=== PATIENT | female | born 1945 | race Caucasian/White ===

== ENCOUNTER 2022-11-15 07:39 | Inpatient (IN) | payer MEDICARE, MEDICAID, SELFPAY ==
--- NOTE | ~2022-11-15 | CT_ITS ---
EXAMINATION: CT abdomen pelvis w con INDICATION: Rectal bleeding TECHNIQUE: Computed tomographic images of the abdomen and pelvis were obtained after the administrati on of 100 cc of Omnipaque 350 intravenous contrast. The dose-length product (DLP) was 1414.52 mGy-cm. Automated exposure control and iterative reconstruction technique were employed. COMPARISON: None available FINDINGS: Minimal dependent atelectasis is present in the lung bases. The heart size is normal. There is a small sliding hiatal hernia. The gallbladder is surgically absent. There is mild enlargement of the common bile duct and central intrahepatic ducts which is likely due to post cholecystectomy stat e. The liver, spleen, pancreas, and adrenal glands are normal. There are areas of cortical scarring i n the right kidney. There is a 1.7 cm cyst of the left kidney. Peripelvic cysts are also noted in the left kidney. No pathologically enlarged abdominal or pelvic lymph nodes are identified. No free intr aperitoneal gas or evidence of bowel obstruction. There is circumferential wall thickening of the col on from the splenic flexure through the sigmoid colon. There is pericolic fat stranding adjacent to t he affected segment of colon. There is moderate lower thoracic spondylosis. IMPRESSION: 1. Colitis from the splenic flexure through the sigmoid colon. Reviewed, dictated and finalized at location [facility]
[2022-11-15 07:49] VITALS: BP 158/77; PULSE 81; RESP 18; TEMP 37.2; O2SAT 95
[2022-11-15 08:04] VITALS: BP 146/79; PULSE 64
[2022-11-15 08:06] VITALS: BP 144/89; PULSE 89
[2022-11-15 08:09] VITALS: BP 135/96; PULSE 89
--- NOTE | 2022-11-15 08:12 | ED.GIBLEED ---
HPI - GI Bleed General Chief complaint: GI Bleed Stated complaint: abdominal pain, rectal bleeding Time Seen by Provider: 11/15/22 07:52 Source: patient, family and RN notes reviewed Mode of arrival: ambulatory Limitations: no limitations History of Present Illness HPI Narrative: This is a 77 year old female who presents for evaluation of rectal bleeding. Patient states last night she developed diffuse abdominal cramping that has been constant. She also started having multiple stools that were occuring every 2 hours. She reports she is now pass bright red blood per rectum. She is passing blood clots. She reports weakness. She denies fever, chills. She had 1 episode of emesis early as well . She takes aspirin 81 mg for history of TIA per her daughter.. PAtient reports colonoscopy 3 years ago that shows polyp but denies hemorrhoids. Related Data Home Medications Medication Instructions Recorded Confirmed amlodipine 5 mg tablet 5 mg DAILY 11/15/22 11/15/22 aspirin 81 mg capsule 81 mg PO DAILY 11/15/22 11/15/22 cholecalciferol (vitamin D3) 25 25 mcg PO DAILY 11/15/22 11/15/22 mcg (1,000 unit) capsule (Vitamin D3) hydrochlorothiazide 25 mg tablet 25 mg DAILY 11/15/22 11/15/22 levothyroxine 125 mcg tablet 125 mcg DAILY 11/15/22 11/15/22 losartan 100 mg tablet 100 mg DAILY 11/15/22 11/15/22 simvastatin 20 mg tablet 20 mg DAILY 11/15/22 11/15/22 Allergies Allergy/AdvReac Type Severity Reaction Status Date / Time guaifenesin [From Mucinex] Allergy Itching Verified 11/15/22 08:15 ibuprofen Allergy Rash Verified 11/15/22 08:15 latex Allergy Swelling Verified 11/15/22 08:15 of Lip/Tongue/Throat lisinopril Allergy Swelling Verified 11/15/22 08:15 of Lip/Tongue/Throat naproxen Allergy Palpitation Verified 11/15/22 08:15 s albuterol AdvReac Palpitation Verified 11/15/22 08:15 s Review of Systems Constitutional: Constitutional: Reports fatigue and Reports weakness Cardiovascular: Cardiovascular: Denies syncope, Denies rapid heart rate, Denies irregular heart rhythm, Denies leg edema and Denies dyspnea Respiratory: Respiratory: Denies chest congestion, Denies hemoptysis, Denies excessive phlegm production and Denies dyspnea Gastrointestinal: Gastrointestinal: Reports abdominal pain, Denies hematochezia, Reports diarrhea, Reports nausea and Reports vomiting Genitourinary: Genitourinary: Denies hematuria and Denies dysuria Musculoskeletal: Musculoskeletal: Denies joint swelling, Denies loss of height and Denies muscle weakness Neurologic: Denies syncope, Denies focal weakness and Denies weakness [facility] Past Medical History Medical History (Updated 11/15/22 @ 15:00 by Deya Salinas MD) Colon polyp Hypertension TIA (transient ischemic attack) Family History Family History (Updated 11/15/22 @ 13:18 by Farzaneh Herron RN) Mother Cerebrovascular accident Social History Social History (Updated 11/15/22 @ 08:13 by Deya Salinas MD) Smoking status: Never smoker Alcohol intake: never Substance use: never Lack of Transportation: No Lack of Food: Never True Current Housing: I Have Housing Concerned About Future Housing: No Difficulty Paying Gas/Electric Bills: No Difficulty Paying for Meds: No Currently Unemployed: No Education: Grade School Difficulty w/ Childcare or Family Care: No Spiritual care concerns: No Exam Const: General: no acute distress and alert Orientation/consciousness: patient oriented x3 HENMT: Head: normal to inspection Eyes: EOM: EOMs intact bilaterally Chest: Chest palpation & inspection: normal inspection of the chest Resp: Effort & Inspection: normal respiratory effort Auscultation: clear to auscultation bilaterally Cardio: Rate: regular rate Rhythm: regular rhythm Heart sounds: no murmurs GI: GI Palp: Yes Soft to palpation, Yes Tenderness to palpation present (GI) (LLQ, LUQ), No Guarding due to p
[2022-11-15 08:27] LABS: Basophils Percent Auto 0.1 % (0.2-1.2); Hematocrit 45.4 % (37.0-47.0); Hemoglobin 14.9 g/dL (12.0-15.0); Immature Granulocyte Absolute 0.05 K/mm3 (0.00-0.031); Immature Granulocyte Percent A 0.4 % (0-0.5); Lymphocytes Absolute Auto 0.84 K/mm3 (0.9-3.2); Lymphocytes Percent Auto 5.9 % (18.3-44.2); Mean Corpuscular HGB Conc 32.8 g/dl (32-36); Mean Corpuscular Hemoglobin 27.4 pg (26-34); Mean Corpuscular Volume 83.6 fl (80-100); Mean Platelet Volume 9.4 fl (7.4-10.4); Monocytes Absolute Auto 0.4 K/mm3 (0.1-0.6); Monocytes Percent Auto 3.1 % (2.6-8.5); Neutrophils Absolute Auto 12.8 K/mm3 (1.3-6.7); Neutrophils Percent Auto 90.5 % (45.5-73.1); Platelet Count Result 286 k/mm3 (150-375); Red Blood Count 5.43 M/mm3 (4.2-5.4); Red Cell Distribution Width 13.9 % (11.5-14.5); White Blood Count 14.1 K/mm3 (4.5-10.0)
[2022-11-15 08:38] LABS: Prothrombin Time 13.1 Seconds (11.1-14.7)
[2022-11-15 08:39] LABS: Alanine Aminotransferase 21 U/L (6-35); Albumin Level 4.8 g/dL (3.5-5.1); Alkaline Phosphatase 67 U/L (38-126); Anion Gap 8 mmol/L (8-16); Aspartate Amino Transferase 28 U/L (14-36); Bilirubin,Total 0.6 mg/dL (0.2-1.3); Blood Urea Nitrogen 20 mg/dL (7-17); Calcium 9.8 mg/dL (8.4-10.2); Carbon Dioxide 29 mmol/L (22-30); Chloride 100 mmol/L (98-107); Estimated CRCL calculation 49 ml/min; Estimated Glomerular Filt Rate 54; Glucose 169 mg/dL (65-110); Partial Thromboplastin Time 34.6 SECONDS (22.3-36.8); Potassium 3.1 mmol/L (3.4-5.0); Sodium 137 mmol/L (137-145)
[2022-11-15 11:23] LABS: Hematocrit 44.2 % (37.0-47.0); Hemoglobin 14.6 g/dL (12.0-15.0)
[2022-11-15] MEDS: POTASSIUM CHLORIDE 20 MEQ TABLET 40 MEQ PO (11:38)
[2022-11-15 11:49] VITALS: BP 169/79; PULSE 73; RESP 16; TEMP 37; O2SAT 95
--- NOTE | 2022-11-15 11:54 | PC.NURSE ---
Pt ambulated to bathroom to attempt to provide stool sample.
[2022-11-15 11:57] LABS: Influenza A QL RT-PCR Negative (Negative); Influenza B QL RT-PCR Negative (Negative); SARS-CoV-2 RNA PCR Negative
[2022-11-15] MEDS: ONDANSETRON INJ 4 MG/2 ML VIAL IV PUSH (12:01)
[2022-11-15] MEDS: SODIUM CHLORIDE 0.9% IV 1,000 ML 125 ML IV CONT ×2 (12:07→21:41)
[2022-11-15 12:50] VITALS: BMI 45.2
[2022-11-15 13:03] VITALS: BP 149/90; PULSE 78; RESP 18; TEMP 37.2; O2SAT 98; BMI 46.0
--- NOTE | 2022-11-15 13:15 | ADMGEN ---
This patient, Katherine Calle, was admitted to [facility] S[facility] Room 325-02. Patient/family oriented to hospital policies and general routines including ID bracelet, bed and alarms, visiting hours, pain management, procedures, bathroom and other care routines, personal items, smoking policy, room service/diet, and visiting hours. Information on how to activate the Rapid Response Team has been discussed. Patient/Family are encouraged to report perceived risks to care and to ask questions if they do not understand what they are told or what they should do.
--- NOTE | 2022-11-15 15:10 | WPDGICN ---
Assessment and Plan Assessment and plan (1) Colitis with rectal bleeding: Code(s): K52.9 - Noninfective gastroenteritis and colitis, unspecified; K62.5 - Hemorrhage of anus and rectum Status: Acute Assessment and Plan: CT scan suggest patient has left-sided colitis. Along with rectal bleeding most consistent with infectious colitis. Stool cultures are pending. Will place patient on broad-spectrum antibiotic coverage. Colonoscopy will be attempted tomorrow with preparation this evening to further define this condition and safety for advancing diet. In the interim patient will be kept on liquids with broad-spectrum antibiotics. GI Consult Note Consult date/time: 11/15/22 15:10 Reason for consult: Bloody diarrhea HPI: Katherine Calle is a 77 year old female I am asked to see because of possible infectious colitis. Patient reports recently having difficulty with constipation. Over the last 1 week she describes abdominal bloating. Over last 3 days she has had abdominal cramping. Last evening began to have some bright red blood per rectum. For this reason she presented to the emergency room. In the emergency room assess CT scan suggested colitis in the left colon. Bowel thickening was noted in this area. Patient denies a fever. She denies any recent travel. She has no one else in the family is ill. Patient was admitted the hospital for further evaluation IV antibiotics. Review of Systems Review of Systems: Review of systems noncontributory. [facility] Past Medical History Medical History (Updated 11/15/22 @ 15:00 by Deya Salinas MD) Colon polyp Hypertension TIA (transient ischemic attack) Family History Family History (Updated 11/15/22 @ 13:18 by Farzaneh Herron RN) Mother Cerebrovascular accident Social History Social History (Updated 11/15/22 @ 08:13 by Deya Salinas MD) Smoking status: Never smoker Alcohol intake: never Substance use: never Lack of Transportation: No Lack of Food: Never True Current Housing: I Have Housing Concerned About Future Housing: No Difficulty Paying Gas/Electric Bills: No Difficulty Paying for Meds: No Currently Unemployed: No Education: Grade School Difficulty w/ Childcare or Family Care: No Spiritual care concerns: No Meds Home Medications and Allergies Home Medications Medication Instructions Recorded Confirmed Type amlodipine 5 mg tablet 5 mg DAILY 11/15/22 11/15/22 History aspirin 81 mg capsule 81 mg PO DAILY 11/15/22 11/15/22 History cholecalciferol (vitamin D3) 25 25 mcg PO DAILY 11/15/22 11/15/22 History mcg (1,000 unit) capsule (Vitamin D3) hydrochlorothiazide 25 mg tablet 25 mg DAILY 11/15/22 11/15/22 History levothyroxine 125 mcg tablet 125 mcg DAILY 11/15/22 11/15/22 History losartan 100 mg tablet 100 mg DAILY 11/15/22 11/15/22 History simvastatin 20 mg tablet 20 mg DAILY 11/15/22 11/15/22 History Allergies Allergy/AdvReac Type Severity Reaction Status Date / Time guaifenesin [From Mucinex] Allergy Itching Verified 11/15/22 08:15 ibuprofen Allergy Rash Verified 11/15/22 08:15 latex Allergy Swelling Verified 11/15/22 08:15 of Lip/Tongue/Throat lisinopril Allergy Swelling Verified 11/15/22 08:15 of Lip/Tongue/Throat naproxen Allergy Palpitation Verified 11/15/22 08:15 s albuterol AdvReac Palpitation Verified 11/15/22 08:15 s Vital Signs Vital Signs - 24 hr 11/15/22 07:49 11/15/22 08:04 11/15/22 08:06 Temperature 98.9 F Pulse Rate 81 64 89 Respiratory Rate 18 Blood Pressure 158/77 H 146/79 H 144/89 H Pulse Oximetry 95 Oxygen Delivery Room Air 11/15/22 08:09 11/15/22 11:49 11/15/22 13:03 Temperature 98.6 F 99.0 F Pulse Rate 89 73 78 Respiratory Rate 16 18 Blood Pressure 135/96 H 169/79 H 149/90 H Pulse Oximetry 95 98 Oxygen Delivery 11/15/22 12:50 Temperature Pulse Rate Respiratory Rate Blood Pressure
[2022-11-15] MEDS: PEG (High)/E-LYTE SOLN 4,000 ML BTL 4000 ML PO (17:18)
--- NOTE | 2022-11-15 18:02 | PM.IMHP ---
H&P: HPI History of Present Illness Date/Time: 11/15/22 18:02 Chief Complaint: GI bleed Narrative: This is a 77-year-old female patient who has had a history of colon polyps in the past. The patient came to the emergency room to be evaluated for rectal bleeding. She stated that last night she developed diffuse abdominal cramping that has been constant. She has had multiple stools wears been bright red blood. It occurred over 2 hours prior to coming to the emergency room. The patient is passing bright red clots as well. She feels very weak. She denies any fever chills. She had an episode of emesis as well the patient does take an 81 mg aspirin for her TIAs. Her white count 14.1. Potassium is 3.1. Influenza A/B and COVID are all negative. Abdominal pelvis CT was read as colitis from the splenic flexure through the sigmoid colon. The patient was started on Zosyn and given p.o. potassium. GI was consulted and has already seen the patient. The plan is for her to have a colonoscopy tomorrow. The patient is being admitted to observation status on the date of service of 11/15/2022. Review of Systems Review of Systems: See HPI All systems reviewed & are unremarkable except as noted in HPI and below Constitutional: Constitutional: Reports as per HPI and Reports no additional constitutional complaints Eyes: Eyes: Reports as per HPI and Reports no additional eye complaints ENT: Reports system reviewed and no additional complaints, except as documented and Reports Normal hearing present Cardiovascular: Cardiovascular: Reports no additional cardiovascular complaints Respiratory: Respiratory: Reports no additional respiratory complaints and Reports no additional respiratory complaints Gastrointestinal: Gastrointestinal: Reports as per HPI and Reports no additional gastrointestinal complaints Musculoskeletal: Musculoskeletal: Reports no additional musculoskeletal complaints Integumentary/Breasts: Skin/Breast: Reports system reviewed and no additional complaints, except as docu and Reports as per HPI Neurologic: Reports system reviewed and no additional complaints, except as documented, Reports as per HPI and Reports Normal hearing present Psychiatric: Psychiatric: Reports no additional psychiatric complaints and Reports as per HPI Endocrine: Endocrine: Reports no additional endocrine complaints Hematologic/Lymphatic: Hematologic/Lymphatic: Reports no additional hematologic/lymphatic complaints Allergic/Immunologic: Allergic/Immunologic: Reports no additional allergic/immunologic complaints [facility] Past Medical History Medical History (Updated 11/15/22 @ 18:17 by Alexa Heller NP) Colon polyp Hypertension Hypothyroidism TIA (transient ischemic attack) Surgical History Surgical History (Updated 11/15/22 @ 18:07 by Alexa Heller NP) H/O colonoscopy with polypectomy H/O: hysterectomy History of appendectomy History of bladder surgery Hx of cholecystectomy Total knee replacement status Bilat Family History Family History (Updated 11/15/22 @ 18:08 by Alexa Heller NP) Mother Cerebrovascular accident Sibling Ovarian cancer Sister Social History Social History (Updated 11/15/22 @ 18:09 by Alexa Heller NP) Social History: The patient is and has 5 kids. She is a lifelong nonsmoker. She is retired. Her is her durable power energy attorney for healthcare. Code status full code Smoking status: Never smoker Alcohol intake: never Substance use: never Lack of Transportation: No Lack of Food: Never True Current Housing: I Have Housing Concerned About Future Housing: No Difficulty Paying Gas/Electric Bills: No Difficulty Paying for Meds: No Currently Unemployed: No Education: Grade School Difficulty w/ Childcare or Family Care: No Spiritual care concerns: No Meds Home Medications and Allergies Home Medications Medication Instructions Re
[2022-11-15 18:16] LABS: Hematocrit 44.8 % (37.0-47.0); Hemoglobin 14.6 g/dL (12.0-15.0)
[2022-11-15 23:14] LABS: Hematocrit 40.9 % (37.0-47.0); Hemoglobin 13.3 g/dL (12.0-15.0)
[2022-11-15 23:33] LABS: Anion Gap 5 mmol/L (8-16); Blood Urea Nitrogen 15 mg/dL (7-17); Calcium 8.8 mg/dL (8.4-10.2); Carbon Dioxide 31 mmol/L (22-30); Chloride 100 mmol/L (98-107); Estimated CRCL calculation 48 ml/min; Estimated Glomerular Filt Rate 54; Glucose 135 mg/dL (65-110); Magnesium 1.7 mg/dL (1.6-2.3); Potassium 2.7 mmol/L (3.4-5.0); Sodium 136 mmol/L (137-145)
[2022-11-16] VITALS (7 sets, daily range): BP systolic 119–151; BP diastolic 51–88; PULSE 62–80; RESP 16–24; TEMP 36.3–36.9; O2SAT 93–98
[2022-11-16] MEDS: POTASSIUM CHLORIDE 20 MEQ TABLET 40 MEQ PO (00:31)
[2022-11-16 06:52] LABS: Basophils Percent Auto 0.2 % (0.2-1.2); Eosinophils Absolute Auto 0.1 K/mm3 (0-0.3); Eosinophils Percent Auto 0.7 % (0-4.4); Hematocrit 40.6 % (37.0-47.0); Hemoglobin 13.1 g/dL (12.0-15.0); Immature Granulocyte Absolute 0.09 K/mm3 (0.00-0.031); Immature Granulocyte Percent A 0.6 % (0-0.5); Lymphocytes Absolute Auto 1.71 K/mm3 (0.9-3.2); Lymphocytes Percent Auto 11.1 % (18.3-44.2); Mean Corpuscular HGB Conc 32.3 g/dl (32-36); Mean Corpuscular Hemoglobin 26.8 pg (26-34); Mean Platelet Volume 9.3 fl (7.4-10.4); Monocytes Absolute Auto 0.9 K/mm3 (0.1-0.6); Neutrophils Absolute Auto 12.6 K/mm3 (1.3-6.7); Neutrophils Percent Auto 81.4 % (45.5-73.1); Platelet Count Result 249 k/mm3 (150-375); Red Blood Count 4.89 M/mm3 (4.2-5.4); White Blood Count 15.5 K/mm3 (4.5-10.0)
[2022-11-16 07:25] LABS: Alanine Aminotransferase 18 U/L (6-35); Albumin Level 4.1 g/dL (3.5-5.1); Alkaline Phosphatase 56 U/L (38-126); Anion Gap 7 mmol/L (8-16); Aspartate Amino Transferase 26 U/L (14-36); Bilirubin,Total 0.7 mg/dL (0.2-1.3); Blood Urea Nitrogen 13 mg/dL (7-17); Calcium 8.8 mg/dL (8.4-10.2); Carbon Dioxide 32 mmol/L (22-30); Chloride 100 mmol/L (98-107); Estimated CRCL calculation 48 ml/min; Estimated Glomerular Filt Rate 54; Glucose 121 mg/dL (65-110); Potassium 3.2 mmol/L (3.4-5.0); Sodium 139 mmol/L (137-145)
[2022-11-16] MEDS: LACTATED RINGERS 1,000 ML 150 ML IV CONT (09:58)
--- NOTE | 2022-11-16 10:08 | WPDANESEPPF ---
Anes - Initial Pre Proc Eval Procedure: Operation Date: 11/16/22 11:30 Proposed Procedures p Colonoscopy - Refugio Terry MD Date/Time: 11/16/22 10:08 Surgeon: Belen Barros MD Pre Op Diagnosis: Colitis/Rectal Bleeding Patient Data Age: 77 Gender: F Height: 1.55 m Weight: 110.4 kg Last Vital Signs Temp 97.4 F L 11/16/22 09:55 Pulse 71 11/16/22 09:55 Resp 18 11/16/22 09:55 BP 127/78 11/16/22 09:55 Pulse Ox 95 11/16/22 09:55 O2 Del Method Room Air 11/16/22 09:55 Allergies Allergy/AdvReac Type Severity Reaction Status Date / Time guaifenesin [From Mucinex] Allergy Itching Verified 11/15/22 08:15 ibuprofen Allergy Rash Verified 11/15/22 08:15 latex Allergy Swelling Verified 11/15/22 08:15 of Lip/Tongue/Throat lisinopril Allergy Swelling Verified 11/15/22 08:15 of Lip/Tongue/Throat naproxen Allergy Palpitation Verified 11/15/22 08:15 s albuterol AdvReac Palpitation Verified 11/15/22 08:15 s Home Medications Medication Instructions Recorded Confirmed Type amlodipine 5 mg tablet 5 mg DAILY 11/15/22 11/15/22 History aspirin 81 mg capsule 81 mg PO DAILY 11/15/22 11/15/22 History cholecalciferol (vitamin D3) 25 25 mcg PO DAILY 11/15/22 11/15/22 History mcg (1,000 unit) capsule (Vitamin D3) hydrochlorothiazide 25 mg tablet 25 mg DAILY 11/15/22 11/15/22 History levothyroxine 125 mcg tablet 125 mcg DAILY 11/15/22 11/15/22 History losartan 100 mg tablet 100 mg DAILY 11/15/22 11/15/22 History simvastatin 20 mg tablet 20 mg DAILY 11/15/22 11/15/22 History Laboratory Tests 11/15/22 11/15/22 11/15/22 11:16 11:16 17:19 WBC RBC Hgb 14.6 g/dL g/dL 14.6 g/dL g/dL (12.0-15.0) (12.0-15.0) Hct 44.2 % % 44.8 % % (37.0-47.0) (37.0-47.0) MCV MCH MCHC RDW Plt Count MPV Immature Gran % (Auto) Neut % (Auto) Lymph % (Auto) [place] % (Auto) Eos % (Auto) Baso % (Auto) Lymph # (Auto) [place] # (Auto) Eos # (Auto) Baso # (Auto) Abs Immat Gran (auto) Absolute Neuts (auto) Absolute Nucleated RBC Nucleated RBC % Sodium Potassium Chloride Carbon Dioxide Anion Gap BUN Creatinine Estim Creat Clear Calc Estimated GFR Glucose Calcium Magnesium Total Bilirubin AST ALT Alkaline Phosphatase Total Protein Albumin TSH (Reflex) Influenza A (RT-PCR) Negative (Negative) Influenza B (RT-PCR) Negative (Negative) SARS-CoV-2 RNA (RT-PCR) Negative 11/15/22 11/15/22 11/16/22 23:07 23:07 06:44 WBC RBC Hgb 13.3 g/dL g/dL (12.0-15.0) Hct 40.9 % % (37.0-47.0) MCV MCH MCHC RDW Plt Count MPV Immature Gran % (Auto) Neut % (Auto) Lymph % (Auto) [place] % (Auto) Eos % (Auto) Baso % (Auto) Lymph # (Auto) [place] # (Auto) Eos # (Auto) Baso # (Auto) Abs Immat Gran (auto) Absolute Neuts (auto) Absolute Nucleated RBC Nucleated RBC % Sodium 136 mmol/L L mmol/L (137-145) Potassium 2.7 mmol/L L* mmol/L (3.4-5.0) Chloride 100 mmol/L mmol/L (98-107) Carbon Dioxide 31 mmol/L H mmol/L (22-30) Anion Gap 5 mmol/L L mmol/L (8-16) BUN 15 mg/dL D mg/dL (7-17) Creatinine 1.00
[2022-11-16] MEDS: KCL 20MEQ/0.9% SOD CHL 1,000 ML 75 ML IV CONT (11:44)
[2022-11-16] MEDS: SIMVASTATIN 10 MG TABLET 20 MG BY MOUTH (11:45)
[2022-11-16] MEDS: CHOLECALCIFEROL 1,000 UNITS TABLET 1000 UNITS PO (11:45)
[2022-11-16] MEDS: amLODIPine BESYLATE 5 MG TABLET BY MOUTH (11:45)
[2022-11-16] MEDS: LOSARTAN POTASSIUM 100 MG TABLET BY MOUTH (11:45)
--- NOTE | 2022-11-16 15:55 | PM.IMPN ---
Progress Note: A&P Assessment and Plan (1) Hypertension: Code(s): I10 - Essential (primary) hypertension Status: Acute (2) Colitis: Code(s): K52.9 - Noninfective gastroenteritis and colitis, unspecified Status: Acute (3) GI bleed: Code(s): K92.2 - Gastrointestinal hemorrhage, unspecified Status: Acute (4) Colitis with rectal bleeding: Code(s): K52.9 - Noninfective gastroenteritis and colitis, unspecified; K62.5 - Hemorrhage of anus and rectum Status: Acute (5) Acute hypokalemia: Code(s): E87.6 - Hypokalemia Status: Acute Plan 77 years old F with PMH of colonic polyps presented with rectal bleeding.?Abdominal pelvis CT was read as colitis from the splenic flexure through the sigmoid colon.? The patient was started on Zosyn? GI was consulted, underwent colonoscopy today which showed colitis, in transverse, descending colo, suspicious for ischemic but infectious cannot be ruled out. 1)Acute Colitis: s/p Colonoscopy c/w IV fluids Pain control c/w Zosyn Clear liquid diet, advance as tolerated Monitor for bleeding, monitor H/H 2)Hypokalemia: Supplement potassium Recheck BMP in AM 3)HTN:C/w Norvasc, Losartan 4)DVT ppx:SCD 5)Code:Full 6)PT/OT 7)Dispo:pending improvement in pain Time Spent With Patient Time with patient: 25 - 35 minutes Subjective Date/time seen: 11/16/22 15:55 Interval history: s/p colonoscopy today had bloody BM before coloscopy c/o lower abdominal pain Review of Systems Review of Systems: All systems reviewed & are unremarkable except as noted in HPI and below Constitutional: Constitutional: Reports no additional constitutional complaints ENT: Reports system reviewed and no additional complaints, except as documented Cardiovascular: Cardiovascular: Reports no additional cardiovascular complaints Respiratory: Respiratory: Reports no additional respiratory complaints Gastrointestinal: Gastrointestinal: Reports abdominal pain, Reports hematochezia and Reports heartburn Musculoskeletal: Musculoskeletal: Reports no additional musculoskeletal complaints Neurologic: Reports system reviewed and no additional complaints, except as documented Exam Const: General: comfortable and no acute distress HENMT: Mouth: Yes moist mucous membranes Eyes: Sclera: sclerae normal Pupils: Equal, round and reactive pupils present Neck: Neck: supple Resp: Effort & Inspection: normal respiratory effort Auscultation: clear to auscultation bilaterally Cardio: Rate: regular rate Rhythm: regular rhythm GI: GI Palp: Yes Soft to palpation and Yes Tenderness to palpation present (GI) Auscultation: normal bowel sounds Other: tenderness in LLQ, Suprapubic region, no guarding Skin: General skin exam: normal color Neuro: Speech: normal speech Extrem: General: normal to inspection Psych: Mental Status: mental status grossly normal Objective Data Vital Signs Vital Signs: Vital Signs - 24 hr 11/16/22 06:00 11/16/22 09:55 11/16/22 10:51 Temperature 97.9 F 97.4 F L Pulse Rate 80 71 73 Respiratory Rate 16 18 24 H Blood Pressure 125/73 127/78 119/88 Pulse Oximetry 95 95 97 Oxygen Delivery Room Air Room Air 11/16/22 11:01 11/16/22 11:11 11/16/22 08:00 Temperature Pulse Rate 62 63 Respiratory Rate 23 H 22 H Blood Pressure 125/79 151/80 H Pulse Oximetry 98 98 Oxygen Delivery Room Air Room Air Room Air 11/16/22 14:00 Temperature 98.4 F Pulse Rate 65 Respiratory Rate 18 Blood Pressure 136/58 L Pulse Oximetry 93 Oxygen Delivery Intake/Output Intake/Output: Intake & Output 11/13/22 11/14/22 11/15/22 11/16/22 23:59 23:59 23:59 23:59 Intake Total 1050 468 Balance 1050 468 Meds/Results Medications: Active Medications Generic Name Dose Route Start Last Admin Trade Name Freq PRN Reason Stop Dose Admin Amlodipine Besylate 5 mg 11/16/22 09:00 11/16/22 11:45 Amlodipine Besy
[2022-11-16] MEDS: FAMOTIDINE 20 MG TABLET PO ×2 (17:07→20:46)
[2022-11-17] MEDS: KCL 20MEQ/0.9% SOD CHL 1,000 ML 75 ML IV CONT ×2 (00:19→20:15)
[2022-11-17 04:32] VITALS: BP 115/62; PULSE 68; RESP 16; TEMP 36.7; O2SAT 95
[2022-11-17] MEDS: LEVOTHYROXINE SODIUM 125 MCG TABLET BY MOUTH (05:44)
[2022-11-17 06:37] LABS: Basophils Absolute Auto 0.1 K/mm3 (0.0-0.1); Basophils Percent Auto 0.4 % (0.2-1.2); Eosinophils Absolute Auto 0.4 K/mm3 (0-0.3); Eosinophils Percent Auto 3.4 % (0-4.4); Hematocrit 36.7 % (37.0-47.0); Hemoglobin 11.7 g/dL (12.0-15.0); Immature Granulocyte Absolute 0.06 K/mm3 (0.00-0.031); Immature Granulocyte Percent A 0.5 % (0-0.5); Lymphocytes Absolute Auto 1.95 K/mm3 (0.9-3.2); Lymphocytes Percent Auto 15.6 % (18.3-44.2); Mean Corpuscular HGB Conc 31.9 g/dl (32-36); Mean Corpuscular Volume 84.8 fl (80-100); Mean Platelet Volume 10.1 fl (7.4-10.4); Monocytes Absolute Auto 0.6 K/mm3 (0.1-0.6); Monocytes Percent Auto 4.8 % (2.6-8.5); Neutrophils Absolute Auto 9.4 K/mm3 (1.3-6.7); Neutrophils Percent Auto 75.3 % (45.5-73.1); Platelet Count Result 204 k/mm3 (150-375); Red Blood Count 4.33 M/mm3 (4.2-5.4); Red Cell Distribution Width 13.8 % (11.5-14.5); White Blood Count 12.5 K/mm3 (4.5-10.0)
[2022-11-17 06:51] LABS: Anion Gap 6 mmol/L (8-16); Blood Urea Nitrogen 10 mg/dL (7-17); Calcium 8.3 mg/dL (8.4-10.2); Carbon Dioxide 29 mmol/L (22-30); Chloride 107 mmol/L (98-107); Estimated CRCL calculation 48 ml/min; Estimated Glomerular Filt Rate 54; Glucose 95 mg/dL (65-110); Potassium 3.2 mmol/L (3.4-5.0); Sodium 142 mmol/L (137-145)
--- NOTE | 2022-11-17 07:43 | WPDGIPROGNO ---
Progress Note: A&P Assessment and Plan (1) Colitis: Code(s): K52.9 - Noninfective gastroenteritis and colitis, unspecified Status: Acute Assessment and Plan: Patient with rather significant colitis to the transverse and descending colon. Differential diagnosis includes ischemic versus infectious colitis. History final histology pending. If ischemic it should heal on its own. If it is infectious she would benefit from antibiotics. Plan to complete 7 to take course of empiric antibiotics. Advance diet. Patient may be discharged if diet tolerated later on today. Outpatient follow-up if abdominal pain, diarrhea, or bleeding persists. (2) H/O colonoscopy with polypectomy: Code(s): Z98.890 - Other specified postprocedural states; Z86.010 - Personal history of colonic polyps Status: Acute Assessment and Plan: Long-term follow-up at 5 year intervals advised. Subjective Date/time seen: 11/17/22 07:43 Interval history: Patient alert much more comfortable today. Passing stool with minimal to no bleeding. Only modest abdominal discomfort. Review of Systems Review of Systems: Review of systems noncontributory. Exam Narrative: Physical exam reveals patient be alert comfortable at rest lying in bed. Vital signs stable. HEENT exam reveals no icterus. Lungs are clear to auscultation and percussion. Heart without murmur. Abdomen is obese. Bowel sounds are present soft mild left-sided abdominal discomfort on palpation. No masses appreciated. Objective Data Vital Signs Vital Signs: Vital Signs - 24 hr 11/16/22 09:55 11/16/22 10:51 11/16/22 11:01 Temperature 97.4 F L Pulse Rate 71 73 62 Respiratory Rate 18 24 H 23 H Blood Pressure 127/78 119/88 125/79 Pulse Oximetry 95 97 98 Oxygen Delivery Room Air Room Air Room Air 11/16/22 11:11 11/16/22 08:00 11/16/22 14:00 Temperature 98.4 F Pulse Rate 63 65 Respiratory Rate 22 H 18 Blood Pressure 151/80 H 136/58 L Pulse Oximetry 98 93 Oxygen Delivery Room Air Room Air 11/16/22 21:00 11/17/22 04:32 Temperature 97.9 F 98.1 F Pulse Rate 67 68 Respiratory Rate 16 16 Blood Pressure 133/51 L 115/62 Pulse Oximetry 93 95 Oxygen Delivery Intake/Output Intake/Output: Intake & Output 11/14/22 11/15/22 11/16/22 11/17/22 23:59 23:59 23:59 23:59 Intake Total 7755 680 7345 Balance 9070 912 2579 Meds/Results Medications: Active Medications Generic Name Dose Route Start Last Admin Trade Name Freq PRN Reason Stop Dose Admin Amlodipine Besylate 5 mg 11/16/22 09:00 11/16/22 11:45 Amlodipine Besylate 5 Mg Tablet BY MOUTH 5 mg DAILY CAREY Administration Famotidine 20 mg 11/16/22 16:30 11/16/22 20:46 Famotidine 20 Mg Tablet PO 20 mg Q12HR CAREY Administration Piperacillin/Tazobactam/Dextrose 3.375 gm in 50 mls @ 100 mls/hr 11/15/22 18:00 11/17/22 05:44 Zosyn 3.375 Gm/D5w 50ml Pm IVPB 100 mls/hr Q6H CAREY Administration Potassium Chloride/Sodium Chloride 1,000 mls @ 75 mls/hr 11/16/22 10:00 11/17/22 00:19 Kcl 20 Meq/Ns IV CONT 75 mls/hr .[id number] CAREY Administration Levothyroxine Sodium 125 mcg 11/16/22 06:30 11/17/22 05:44 Levothyroxine Sodium 125 Mcg Tablet BY MOUTH 125 mcg DAILY@0630 CAREY Administration Losartan Potassium 100 mg 11/16/22 09:00 11/16/22 11:45 Losartan Potassium 100 Mg Tablet BY MOUTH 100 mg DAILY CAREY Administration Ondansetron HCl 4 mg 11/15/22 11:06 11/15/22 12:01 Ondansetron Inj 4 Mg/2 Ml Vial IV PUSH 4 mg Q4H PRN Administration Nausea Simvastatin 20 mg 11/16/22 09:00 11/16/22 11:45 Simvastatin 10 Mg Tablet BY MOUTH 20 mg DAILY CAREY Administration Vitamin D 1,000 units 11/16/22 09:00 11/16/22 11:45 Cholecalciferol 1,000 Units Tablet PO 1,000 units DAILY CAREY Administration Radiology Results: ITS Impressions Abdomen/Pelvis CT 11/15/22 09:24 IMPRESSION: 1. Colitis from the spleni
--- NOTE | 2022-11-17 08:05 | WPDANESPN ---
Anes - Prog Note Post-Op Date/Time: 11/17/22 08:05 Vital Signs: Last Vital Signs Temp 36.7 C 11/17/22 04:32 Pulse 68 11/17/22 04:32 Resp 16 11/17/22 04:32 BP 115/62 11/17/22 04:32 Pulse Ox 95 11/17/22 04:32 O2 Del Method Room Air 11/16/22 11:11 Pain Score (VAS): 0 I/O: Intake & Output 11/16/22 11/17/22 11/17/22 23:59 07:59 15:59 Intake Total 272 1050 Balance 272 1050 Laboratory Tests 11/17/22 06:14 11/17/22 06:14 11/16/22 11/17/22 11/17/22 06:44 06:14 06:14 WBC 12.5 H RBC 4.33 Hgb 11.7 L Hct 36.7 L MCV 84.8 MCH 27.0 MCHC 31.9 L RDW 13.8 Plt Count 204 MPV 10.1 Immature Gran % (Auto) 0.5 Neut % (Auto) 75.3 H Lymph % (Auto) 15.6 L [place] % (Auto) 4.8 Eos % (Auto) 3.4 Baso % (Auto) 0.4 Lymph # (Auto) 1.95 [place] # (Auto) 0.6 Eos # (Auto) 0.4 H Baso # (Auto) 0.1 Abs Immat Gran (auto) 0.06 H Absolute Neuts (auto) 9.4 H Absolute Nucleated RBC 0.0 Nucleated RBC % 0.0 Sodium 142 Potassium 3.2 L Chloride 107 Carbon Dioxide 29 Anion Gap 6 L BUN 10 Creatinine 1.00 Estim Creat Clear Calc 48 Estimated GFR 54 L Glucose 95 Calcium 8.3 L TSH (Reflex) 2.490 Microbiology 11/15/22 23:07 Blood Blood Culture - Preliminary Patient Feedback: Patient satisfied with anesthetic care.
[2022-11-17] MEDS: amLODIPine BESYLATE 5 MG TABLET BY MOUTH (08:31)
[2022-11-17] MEDS: CHOLECALCIFEROL 1,000 UNITS TABLET 1000 UNITS PO (08:31)
[2022-11-17] MEDS: SIMVASTATIN 10 MG TABLET 20 MG BY MOUTH (08:31)
[2022-11-17] MEDS: LOSARTAN POTASSIUM 100 MG TABLET BY MOUTH (08:31)
[2022-11-17] MEDS: FAMOTIDINE 20 MG TABLET PO ×2 (08:33→20:14)
[2022-11-17 10:46] VITALS: O2SAT 93
[2022-11-17] MEDS: POTASSIUM CHLORIDE INJ 40 MEQ in SODIUM CHLORIDE 0.9% IV 500 ML 130 MEQ IVPB (12:25)
[2022-11-17 14:00] VITALS: BP 135/66; PULSE 63; RESP 16; TEMP 36.5; O2SAT 96
--- NOTE | 2022-11-17 14:44 | PM.IMPN ---
Progress Note: A&P Assessment and Plan (1) Hypertension: Code(s): I10 - Essential (primary) hypertension Status: Acute (2) Colitis: Code(s): K52.9 - Noninfective gastroenteritis and colitis, unspecified Status: Acute (3) GI bleed: Code(s): K92.2 - Gastrointestinal hemorrhage, unspecified Status: Acute (4) Colitis with rectal bleeding: Code(s): K52.9 - Noninfective gastroenteritis and colitis, unspecified; K62.5 - Hemorrhage of anus and rectum Status: Acute (5) Acute hypokalemia: Code(s): E87.6 - Hypokalemia Status: Acute Plan 77 years old F with PMH of colonic polyps presented with rectal bleeding.?Abdominal pelvis CT was read as colitis from the splenic flexure through the sigmoid colon.? The patient was started on Zosyn? GI was consulted, underwent colonoscopy 11/16/2022 which showed colitis, in transverse, descending colo, suspicious for ischemic but infectious cannot be ruled out. # Acute Colitis: s/p Colonoscopy: Colitis, diverticulosis without perforation or abscess without bleeding, internal hemorrhoids. Rather severe colitis in the transverse and descending colon extends from 40-80 cm. This is most suspicious for ischemic colitis but infectious colitis cannot be excluded. c/w IV fluids Pain control c/w Zosyn empirically Clear liquid diet, advance as tolerated Monitor for bleeding, monitor H/H # hypokalemia: Supplement potassium Recheck and monitor # HTN:C/w Norvasc, Losartan # DVT ppx:SCD pharmacologic agent contraindicated due to rectal bleed # Code:Full # PT/OT # Dispo:pending improvement in pain, PT OT Subjective Date/time seen: 11/17/22 14:44 Interval history: Patient feeling much better. No further blood in stool. Mild discomfort in lower abdomen persist. No nausea vomiting. Tolerating diet. Family at bedside and discussed with them. Review of Systems Review of Systems: All systems reviewed & are unremarkable except as noted in HPI and below Exam Narrative: GENERAL: The patient is well developed, not in acute distress HEENT: Nonicteric sclerae, PERRLA, EOMI. Oropharynx clear. Moist mucous membranes. Conjunctivae appear well perfused. CHEST: Chest wall is nontender. HEART: Regular rate and rhythm without murmur, rubs, or gallops LUNGS: Clear to auscultation bilaterally. no respiratory distress ABDOMEN: Soft, positive bowel sounds, diffusely tender mildly, no organomegaly. SKIN: No rash, no excessive bruising, petechiae, or purpura. NEUROLOGIC: Cranial nerves II-XII intact, alert and oriented x 3, no gross motor deficits EXTREMITIES: no edema, cyanosis or clubbing Objective Data Vital Signs Vital Signs: Vital Signs - 24 hr 11/16/22 21:00 11/17/22 04:32 11/17/22 10:46 Temperature 97.9 F 98.1 F Pulse Rate 67 68 Respiratory Rate 16 16 Blood Pressure 133/51 L 115/62 Pulse Oximetry 93 95 93 Oxygen Delivery Room Air 11/17/22 08:00 11/17/22 14:00 Temperature 97.7 F Pulse Rate 63 Respiratory Rate 16 Blood Pressure 135/66 Pulse Oximetry 96 Oxygen Delivery Room Air Intake/Output Intake/Output: Intake & Output 11/14/22 11/15/22 11/16/22 11/17/22 23:59 23:59 23:59 23:59 Intake Total 1584 709 8314 Balance 3146 400 9888 Meds/Results Medications: Active Medications Generic Name Dose Route Start Last Admin Trade Name Freq PRN Reason Stop Dose Admin Amlodipine Besylate 5 mg 11/16/22 09:00 11/17/22 08:31 Amlodipine Besylate 5 Mg Tablet BY MOUTH 5 mg DAILY CAREY Administration Famotidine 20 mg 11/16/22 16:30 11/17/22 08:33 Famotidine 20 Mg Tablet PO 20 mg Q12HR CAREY Administration Piperacillin/Tazobactam/Dextrose 3.375 gm in 50 mls @ 100 mls/hr 11/15/22 18:00 11/17/22 12:25 Zosyn 3.375 Gm/D5w 50ml Pm IVPB 100 mls/hr Q6H CAREY Administration Potassium Chloride/Sodium Chloride 1,000 mls @ 75 mls/hr 11/16/22 10:00 11/17/22 00:19 Kcl 20 Meq/Ns IV CONT
[2022-11-17 22:00] VITALS: BP 130/65; PULSE 62; RESP 18; TEMP 36.3; O2SAT 94
[2022-11-18 06:00] VITALS: BP 150/77; PULSE 65; RESP 17; TEMP 36.7; O2SAT 96
[2022-11-18 06:03] LABS: Basophils Absolute Auto 0.1 K/mm3 (0.0-0.1); Basophils Percent Auto 0.6 % (0.2-1.2); Eosinophils Absolute Auto 0.5 K/mm3 (0-0.3); Eosinophils Percent Auto 4.9 % (0-4.4); Hematocrit 37.6 % (37.0-47.0); Hemoglobin 11.9 g/dL (12.0-15.0); Immature Granulocyte Absolute 0.05 K/mm3 (0.00-0.031); Immature Granulocyte Percent A 0.5 % (0-0.5); Lymphocytes Absolute Auto 2.24 K/mm3 (0.9-3.2); Lymphocytes Percent Auto 20.8 % (18.3-44.2); Mean Corpuscular HGB Conc 31.6 g/dl (32-36); Mean Corpuscular Hemoglobin 26.9 pg (26-34); Mean Corpuscular Volume 84.9 fl (80-100); Mean Platelet Volume 9.5 fl (7.4-10.4); Monocytes Absolute Auto 0.5 K/mm3 (0.1-0.6); Monocytes Percent Auto 4.5 % (2.6-8.5); Neutrophils Absolute Auto 7.4 K/mm3 (1.3-6.7); Neutrophils Percent Auto 68.7 % (45.5-73.1); Platelet Count Result 237 k/mm3 (150-375); Red Blood Count 4.43 M/mm3 (4.2-5.4); Red Cell Distribution Width 13.6 % (11.5-14.5); White Blood Count 10.8 K/mm3 (4.5-10.0)
[2022-11-18 06:27] LABS: Alanine Aminotransferase 15 U/L (6-35); Albumin Level 3.9 g/dL (3.5-5.1); Alkaline Phosphatase 54 U/L (38-126); Anion Gap 5 mmol/L (8-16); Aspartate Amino Transferase 21 U/L (14-36); Bilirubin,Total 0.5 mg/dL (0.2-1.3); Blood Urea Nitrogen 10 mg/dL (7-17); Calcium 8.3 mg/dL (8.4-10.2); Carbon Dioxide 25 mmol/L (22-30); Chloride 109 mmol/L (98-107); Estimated CRCL calculation 48 ml/min; Estimated Glomerular Filt Rate 54; Glucose 90 mg/dL (65-110); Magnesium 1.8 mg/dL (1.6-2.3); Potassium 3.7 mmol/L (3.4-5.0); Sodium 139 mmol/L (137-145)
[2022-11-18] MEDS: LEVOTHYROXINE SODIUM 125 MCG TABLET BY MOUTH (06:29)
[2022-11-18] MEDS: amLODIPine BESYLATE 5 MG TABLET BY MOUTH (08:55)
[2022-11-18] MEDS: LOSARTAN POTASSIUM 100 MG TABLET BY MOUTH (08:55)
[2022-11-18] MEDS: SIMVASTATIN 10 MG TABLET 20 MG BY MOUTH (08:55)
[2022-11-18] MEDS: FAMOTIDINE 20 MG TABLET PO (08:55)
[2022-11-18] MEDS: CHOLECALCIFEROL 1,000 UNITS TABLET 1000 UNITS PO (08:55)
--- NOTE | 2022-11-18 13:35 | PM.DS ---
DS: Admitting Diagnosis Discharge Date 11/18/2022 Admitting Diagnosis Bloody diarrhea DS: Discharge Diagnosis Discharge Diagnosis (1) Hypertension: Code(s): I10 - Essential (primary) hypertension Status: Acute (2) Colitis: Code(s): K52.9 - Noninfective gastroenteritis and colitis, unspecified Status: Acute (3) GI bleed: Code(s): K92.2 - Gastrointestinal hemorrhage, unspecified Status: Acute (4) Colitis with rectal bleeding: Code(s): K52.9 - Noninfective gastroenteritis and colitis, unspecified; K62.5 - Hemorrhage of anus and rectum Status: Acute (5) Acute hypokalemia: Code(s): E87.6 - Hypokalemia Status: Acute DS: Summary Hospital Course Hospital Course: 77 years old F with PMH of colonic polyps presented with rectal bleeding.?Abdominal pelvis CT was read as colitis from the splenic flexure through the sigmoid colon.? The patient was started on Zosyn? GI was consulted, underwent colonoscopy 11/16/2022 which showed colitis, in transverse, descending colon, suspicious for ischemic but infectious cannot be ruled out. # Acute Colitis: s/p Colonoscopy: Colitis, diverticulosis without perforation or abscess without bleeding, internal hemorrhoids.? Rather severe colitis in the transverse and descending colon extends from 40-80 cm.? This is most suspicious for ischemic colitis but infectious colitis cannot be excluded. Patient treated with IV fluids and pain medication. She was continued on Zosyn. This be switched to Augmentin at discharge. Use started on clear liquid diet and slowly advance with tolerated well. No further bleeding noted and H&H remained stable while monitor during the hospital stay. Pathology compatible with ischemic colitis. # hypokalemia: Supplement potassium Recheck and monitor # HTN:C/w Norvasc, Losartan # DVT ppx:SCD pharmacologic agent contraindicated due to rectal bleed # Code:Full # PT/OT # Dispo: Ambulatory Time Spent with Patient Time attestation: Total time spent providing and/or coordinating discharge services: 45 minutes Exam Narrative: GENERAL: The patient is well developed, not in acute distress HEENT: Nonicteric sclerae, PERRLA, EOMI. Oropharynx clear. Moist mucous membranes. Conjunctivae appear well perfused. CHEST: Chest wall is nontender. HEART: Regular rate and rhythm without murmur, rubs, or gallops LUNGS: Clear to auscultation bilaterally. no respiratory distress ABDOMEN: Soft, positive bowel sounds, mild tenderness lower abdomen, no organomegaly. SKIN: No rash, no excessive bruising, petechiae, or purpura. NEUROLOGIC: Cranial nerves II-XII intact, alert and oriented x 3, no gross motor deficits EXTREMITIES: no edema, cyanosis or clubbing DS: Data Data Completed and Pending Completed studies during hospitalization: Pending at discharge 11/16/22 10:49 Surgical [PTH] Routine Labs on day of discharge: Labs from last 24 hours 11/18/22 11/18/22 05:38 05:38 WBC 10.8 H RBC 4.43 Hgb 11.9 L Hct 37.6 MCV 84.9 MCH 26.9 MCHC 31.6 L RDW 13.6 Plt Count 237 MPV 9.5 Immature Gran % (Auto) 0.5 Neut % (Auto) 68.7 Lymph % (Auto) 20.8 [place] % (Auto) 4.5 Eos % (Auto) 4.9 H Baso % (Auto) 0.6 Lymph # (Auto) 2.24 [place] # (Auto) 0.5 Eos # (Auto) 0.5 H Baso # (Auto) 0.1 Abs Immat Gran (auto) 0.05 H Absolute Neuts (auto) 7.4 H Absolute Nucleated RBC 0.0 Nucleated RBC % 0.0 Sodium 139 Potassium 3.7 Chloride 109 H Carbon Dioxide 25 Anion Gap 5 L BUN 10 Creatinine 1.00 Estim Creat Clear Calc 48 Estimated GFR 54 L Glucose 90 Calcium 8.3 L Magnesium 1.8 Total Bilirubin 0.5 AST 21 ALT 15 Alkaline Phosphatase 54 Total Protein 7.0 Albumin 3.9 Preliminary micro results at discharge 11/15/22 23:32 Blood Culture - Preliminary Blood 11/15/22 23:07 Blood Culture - Preliminary Blood Procedures/Treatments
--- NOTE | 2022-11-18 14:06 | WPDGIPROGNO ---
Progress Note: A&P Assessment and Plan (1) Ischemic colitis: Code(s): K55.9 - Vascular disorder of intestine, unspecified Status: Acute Assessment and Plan: Histology of colon inflammation from colonoscopy is most consistent with ischemic colitis. Anticipate this will heal with time with conservative measures. Plan for 1 week broad-spectrum antibiotics for the possibility of infectious etiology. Follow-up in GI office only electively. Anticipate follow-up with primary care service. (2) GI bleed: Code(s): K92.2 - Gastrointestinal hemorrhage, unspecified Status: Acute Assessment and Plan: Bleeding resolved. Was related to ischemic colitis. Improving at this stage. Discharge today. Subjective Date/time seen: 11/18/22 14:06 Interval history: Patient feels good today. Denies abdominal pain. Diarrhea. . No additional bleeding. Review of Systems Review of Systems: Review of systems noncontributory. Exam Narrative: Physical exam reveals patient be alert. Vital signs stable. HEENT exam is unremarkable. Patient anicteric. Lungs are clear. Heart without murmur. Abdomen is obese. Bowel sounds are present soft nontender with no organomegaly. Objective Data Vital Signs Vital Signs: Vital Signs - 24 hr 11/17/22 20:00 11/17/22 22:00 11/18/22 06:00 Temperature 97.3 F L 98.1 F Pulse Rate 62 65 Respiratory Rate 18 17 Blood Pressure 130/65 150/77 H Pulse Oximetry 94 96 Oxygen Delivery Room Air 11/18/22 08:00 Temperature Pulse Rate Respiratory Rate Blood Pressure Pulse Oximetry Oxygen Delivery Room Air Intake/Output Intake/Output: Intake & Output 11/15/22 11/16/22 11/17/22 11/18/22 23:59 23:59 23:59 23:59 Intake Total 8904 923 5755 1320 Output Total 500 Balance 4781 078 6328 1320 Meds/Results Medications: Active Medications Generic Name Dose Route Start Last Admin Trade Name Freq PRN Reason Stop Dose Admin Amlodipine Besylate 5 mg 11/16/22 09:00 11/18/22 08:55 Amlodipine Besylate 5 Mg Tablet BY MOUTH 5 mg DAILY CAREY Administration Famotidine 20 mg 11/16/22 16:30 11/18/22 08:55 Famotidine 20 Mg Tablet PO 20 mg Q12HR CAREY Administration Piperacillin/Tazobactam/Dextrose 3.375 gm in 50 mls @ 100 mls/hr 11/15/22 18:00 11/18/22 12:38 Zosyn 3.375 Gm/D5w 50ml Pm IVPB 100 mls/hr Q6H CAREY Administration Potassium Chloride/Sodium Chloride 1,000 mls @ 75 mls/hr 11/16/22 10:00 11/17/22 20:15 Kcl 20 Meq/Ns IV CONT 75 mls/hr .[id number] CAREY Administration Levothyroxine Sodium 125 mcg 11/16/22 06:30 11/18/22 06:29 Levothyroxine Sodium 125 Mcg Tablet BY MOUTH 125 mcg DAILY@0630 CAREY Administration Losartan Potassium 100 mg 11/16/22 09:00 11/18/22 08:55 Losartan Potassium 100 Mg Tablet BY MOUTH 100 mg DAILY CAREY Administration Ondansetron HCl 4 mg 11/15/22 11:06 11/15/22 12:01 Ondansetron Inj 4 Mg/2 Ml Vial IV PUSH 4 mg Q4H PRN Administration Nausea Simvastatin 20 mg 11/16/22 09:00 11/18/22 08:55 Simvastatin 10 Mg Tablet BY MOUTH 20 mg DAILY CAREY Administration Vitamin D 1,000 units 11/16/22 09:00 11/18/22 08:55 Cholecalciferol 1,000 Units Tablet PO 1,000 units DAILY CAREY Administration Radiology Results: ITS Impressions Abdomen/Pelvis CT 11/15/22 09:24 IMPRESSION: 1. Colitis from the splenic flexure through the sigmoid colon. Labs Labs: Laboratory Results - last 24 hr 11/18/22 11/18/22 05:38 05:38 WBC 10.8 H RBC 4.43 Hgb 11.9 L Hct 37.6 MCV 84.9 MCH 26.9 MCHC 31.6 L RDW 13.6 Plt Count 237 MPV 9.5 Immature Gran % (Auto) 0.5 Neut % (Auto) 68.7 Lymph % (Auto) 20.8 [place] % (Auto) 4.5 Eos % (Auto) 4.9 H Baso % (Auto) 0.6 Lymph # (Auto) 2.24 [place] # (Auto) 0.5 Eos # (Auto) 0.5 H Baso # (Auto) 0.1 Abs Immat Gran (auto) 0.05 H Absolute Neuts (auto) 7.4 H Absolut
== END 2022-11-18 14:20 | disposition home or self-care (01) | DRG 395 ==
LOC: ANHED 08:16 → ANH3MEDSUR 12:12
PROVIDERS: Internal Medicine; Internal Medicine Gastroenterology; Nurse Practitioner; Admitting Provider Family Medicine; Emergency Provider General Practice; PCP Family Medicine; Visit Provider Internal Medicine
PROC: 0DJD8ZZ Inspection of Lower Intestinal Tract, Via Natural or Artificial Opening Endoscopic (ICD-10-PCS; CPT 45378; principal; 2022-11-16 11:30)
DX: K55.9 Vascular disorder of intestine, unspecified (principal); K52.9 Noninfective gastroenteritis and colitis, unspecified; K64.8 Other hemorrhoids; K57.30 Diverticulosis of large intestine without perforation or abscess without bleeding; E87.6 Hypokalemia; I10 Essential (primary) hypertension; E03.9 Hypothyroidism, unspecified; Z20.822 Contact with and (suspected) exposure to COVID-19; Z28.21 Immunization not carried out because of patient refusal; Z79.82 Long term (current) use of aspirin; Z86.73 Personal history of transient ischemic attack (TIA), and cerebral infarction without residual deficits; Z86.010 Personal history of colon polyps; Z90.710 Acquired absence of both cervix and uterus; Z90.49 Acquired absence of other specified parts of digestive tract; Z96.653 Presence of artificial knee joint, bilateral
CPT/HCPCS: 36415; 74177; 80048; 80053; 83735; 84443; 85014; 85018; 85025; 85610; 85730; 86850; 86900; 86901; 87040; 87636; 88305; 96361; 96365; 96366; 96367; 96375; 99285; A9270; G0378; J2405; J2543; J2704; J3480; J7030; J7040; J7120; Q9967

== ENCOUNTER 2023-03-10 12:13 | Outpatient (CLI) | payer MEDICARE, MEDICAID, SELFPAY ==
--- NOTE | 2023-03-10 | ECHO_ITS ---
Patient Info Name: Katherine Calle Age: 77 years : 1945 Gender: Female Ht: 61 in Wt: 242 lbs BSA: 2.24 m2 HR: 74 bpm BP: 138 / 93 mmHg Heart Rhythm: Sinus Rhythm Technical Quality: Fair Exam Date: 03/10/2023 12:53 PM Exam Location: [facility] Patient Status: Outpatient Admit Date: 03/10/2023 Staff Ordering Physician: Dennis, Temitope Castillo MD [employer] Officer: Abbi More RDCS Attending Provider: Dennis, Temitope Castillo MD Referring Physician: Dennis GRIFFITHS; Exam Type: CA echo doppler color flow Study Info Indications R06.00 - Dyspnea, unspecified Complete two-dimensional, color flow and Doppler transthoracic echocardiogram is performed. Summary 1. Complete two-dimensional, color flow and Doppler transthoracic echocardiogram is performed. 2. Left ventricular chamber dimension is normal. 3. Left ventricular systolic function is normal, estimated at 65-70%. 4. There is mildly increased left ventricular wall thickness. 5. The left ventricular diastolic function is grade I diastolic dysfunction. 6. Right ventricular systolic function is normal. 7. There is mild tricuspid valve regurgitation. Left Ventricle Left ventricular chamber dimension is normal. Left ventricular systolic function is normal, estimated at 65-70%. There is mildly increased left ventricular wall thickness. The left ventricular diastolic function is grade I diastolic dysfunction. Global longitudinal strain is abnormal at -15 %. Right Ventricle Right ventricular chamber dimension is normal. Right ventricular systolic function is normal. Left Atria Left atrial chamber dimension is normal. Right Atria Right atrial chamber dimension is normal. Atrial Septum Intact interatrial septum visualized by color flow imaging. Aortic Valve The aortic valve is trileaflet. There is no aortic valve stenosis. There is trace aortic valve regurgitation. There is mild aortic valve calcification. Pulmonic Valve The pulmonic valve is not well visualized. Mitral Valve The mitral valve has thickened leaflets. There is trace mitral valve regurgitation. Tricuspid Valve There is mild tricuspid valve regurgitation. Pericardium/Pleural There is trivial pericardial effusion. Inferior Vena Cava Normal inferior vena cava with >50% collapse upon inspiration consistent with normal right atrial pressure, 3 mmHg. Aorta The aortic root size at the sinus of Valsalva is normal. Left Ventricular Outflow Tract Name Value Normal LVOT 2D LVOT Diameter 2.0 cm LVOT Doppler LVOT Peak Gradient 6 mmHg LVOT Mean Gradient 4 mmHg LVOT VTI 25 cm LVOT VTI/AV VTI Ratio 0.7 LVOT Stroke Volume 80 ml LVOT CO 5.5 l/min LVOT CI 2.4 l/min/m2 Pulmonic Valve Name Value Normal RVOT Doppler
== END 2023-03-10 12:14 | disposition home or self-care (01) ==
PROVIDERS: PCP Family Medicine; Visit Provider Family Medicine
DX: R06.00 Dyspnea, unspecified (principal); R01.1 Cardiac murmur, unspecified; I36.1 Nonrheumatic tricuspid (valve) insufficiency
CPT/HCPCS: 93306

== ENCOUNTER 2024-07-02 05:08 | Emergency (ER) | payer MEDICARE, MEDICAID, SELFPAY ==
[2024-07-02] VITALS (9 sets, daily range): BP systolic 137–155; BP diastolic 65–68; PULSE 58–74; RESP 15–23; TEMP 36.9; O2SAT 96–100
--- NOTE | ~2024-07-02 | CT_ITS ---
Clinical Indication: Shortness of breath, abdominal pain CT Scan of the Chest, Abdomen, and Pelvis with Contrast: Technique: Contiguous sections were acquired throughout the chest, abdomen, and pelvis after intraven ous administration of 100 cc of Omnipaque 350. Dose reduction technique was used on this scan by uti leftying automated exposure control and iterative reconstruction technique. The dose-length product (DL P) was 2298.07 mGy-cm. Comparison: 11/15/2022 Findings: There is no evidence of any significant mediastinal, hilar or axillary lymphadenopathy. The mediastin al soft tissues appear normal. There is no evidence of pleural or pericardial effusion. There are mild patchy bilateral groundglass opacities, predominantly at the inferior right upper lobe , inferior left upper lobe, and bilateral lower lobes. The liver, spleen, pancreas, and adrenal glands are within normal limits. Cholecystectomy clips are p resent. There are probable bilateral parapelvic renal cysts. There are mild atherosclerotic calcifica tions of the aorta. No lymphadenopathy. Small hiatal hernia noted. No bowel obstruction or bowel wall thickening. There is no evidence to sug gest acute appendicitis. Urinary bladder is unremarkable. No pelvic mass seen. No ascites. Impression: Mild patchy bilateral groundglass pulmonary opacities, most compatible with atypical infection. This could include Covid 19 pneumonia. Correlate clinically. Small hiatal hernia. No other significant findings. No pulmonary embolus. Reviewed, dictated and finalized at [facility]. Impression: Mild patchy bilateral groundglass pulmonary opacities, most compatible with aty pical infection. This could include Covid 19 pneumonia. Correlate clinically. Small hiatal hernia. No other significant findings. No pulmonary embolus.
--- NOTE | ~2024-07-02 | XR_ITS ---
Portable chest x-ray Comparison: None Clinical History: Shortness of breath Findings: Probable mild central congestive change present. Questionable minimal bibasilar pulmonary edema. Cardiomediastinal silhouette is prominent. Bones and soft tissues are unremarkable. Impression: Questionable minimal bibasilar pulmonary edema with probable mild central congestive change. Cardiomegaly. Reviewed, dictated and finalized at [facility]. Impression: Questionable minimal bibasilar pulmonary edema with probable mild central conge stive change. Cardiomegaly.
--- NOTE | 2024-07-02 05:12 | ECG_ITS ---
Test Date: 2024-07-02 05:18:37 Measurements Intervals [place] Rate: 66 P: 68 CO: 205 QRS: -15 QRSD: 108 T: 10 QT: 422 QTc: 443 Interpretive Statements SINUS RHYTHM BASELINE ARTIFACT- I, II, III, AVR, AVL, AVF NORMAL ECG No previous ECG available for comparison Electronically Signed On 07-02-2024 06:32:23 CDT by Alphonse Garcia D.O.
--- NOTE | 2024-07-02 05:30 | ED.GENADULT ---
HPI - General Adult General Chief complaint: Shortness of Breath/Dyspnea Stated complaint: SOB Time Seen by Provider: 07/02/24 05:19 History of Present Illness HPI narrative: Patient 78-year-old female who presents emergency department with chief complaint of shortness of breath. Patient reports she has history of polymyalgia rheumatica reports that she woke up went to the bathroom and then when she was going back to bed she had a feeling that came up through her body from her feet up toward her chest the patient states that this time she had a feeling as though she was going to denied palpitations denied chest pain reports that the symptoms have subsequently resolved Related Data Home Medications Medication Instructions Recorded Confirmed amlodipine 5 mg tablet 5 mg DAILY 11/15/22 03/23/24 aspirin 81 mg capsule 81 mg PO DAILY 11/15/22 03/23/24 cholecalciferol (vitamin D3) 25 25 mcg PO DAILY 11/15/22 03/23/24 mcg (1,000 unit) capsule (Vitamin D3) hydrochlorothiazide 25 mg tablet 25 mg DAILY 11/15/22 03/23/24 levothyroxine 125 mcg tablet 125 mcg DAILY 11/15/22 03/23/24 losartan 100 mg tablet 100 mg DAILY 11/15/22 03/23/24 simvastatin 20 mg tablet 20 mg DAILY 11/15/22 03/23/24 famotidine 20 mg tablet 20 mg PO DAILY 03/23/24 03/23/24 multivitamin 1 tablet PO DAILY 03/23/24 03/23/24 potassium citrate 5 mEq (540 mg) 10 meq PO DAILY 03/23/24 03/23/24 tablet,extended release prednisone 5 mg tablet 5 mg PO DIRECTED 03/23/24 03/23/24 Allergies Allergy/AdvReac Type Severity Reaction Status Date / Time guaifenesin [From Mucinex] Allergy Itching Verified 03/23/24 11:12 ibuprofen Allergy Rash Verified 03/23/24 11:12 latex Allergy Swelling Verified 03/23/24 11:12 of Lip/Tongue/Throat lisinopril Allergy Swelling Verified 03/23/24 11:12 of Lip/Tongue/Throat albuterol AdvReac Palpitation Verified 03/23/24 11:12 s naproxen AdvReac Palpitation Verified 03/23/24 11:12 s Review of Systems Review of Systems: A 10 system review of systems was completed on the patient and is negative except for what is stated in the HPI. Nursing and ancillary documentation was reviewed. [facility] Past Medical History Medical History Arthritis Colon polyp GERD (gastroesophageal reflux disease) History of kidney stones Hyperlipidemia Hypertension Hypothyroidism Polymyalgia rheumatica Seasonal allergies TIA (transient ischemic attack) Vitamin D deficiency Surgical History Surgical History H/O colonoscopy with polypectomy H/O: hysterectomy History of appendectomy History of bladder surgery Hx of cholecystectomy Total knee replacement status Bilat Family History Family History Mother Cerebrovascular accident Sibling Ovarian cancer Sister Father Malignant neoplasm of prostate Sibling Lung cancer Malignant neoplasm of prostate Thyroid disease Sibling Parkinsons Social History Social History Social History: The patient is and has 5 kids. She is a lifelong nonsmoker. She is retired. 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 Code status full code Smoking status: Never smoker Alcohol intake: never Substance use: never Lack of Transportation: No Lack of Food: Never True Current Housing: I Have Housing Concerned About Future Housing: No Difficulty Paying Gas/Electric Bills: No Difficulty Paying for Meds: No Currently Unemployed: No Education: Grade School Difficulty w/ Childcare or Family Care: No Spiritual care concerns: No Exam Narrative: GENERAL: Well-appearing, well-nourished, and in no acute distress. HEAD: Normocephalic, atraumatic. EYES: PERRLA and EOMI. E
[2024-07-02 05:33] LABS: Basophils Absolute Auto 0.1 K/mm3 (0.0-0.1); Basophils Percent Auto 0.8 % (0.2-1.2); Eosinophils Absolute Auto 0.2 K/mm3 (0-0.3); Eosinophils Percent Auto 2.4 % (0-4.4); Hematocrit 40.3 % (37.0-47.0); Hemoglobin 13.3 g/dL (12.0-15.0); Immature Granulocyte Absolute 0.04 K/mm3 (0.00-0.031); Immature Granulocyte Percent A 0.5 % (0-0.5); Lymphocytes Percent Auto 30.1 % (18.3-44.2); Mean Corpuscular Hemoglobin 28.1 pg (26-34); Mean Corpuscular Volume 85.2 fl (80-100); Mean Platelet Volume 9.3 fl (7.4-10.4); Monocytes Absolute Auto 0.5 K/mm3 (0.1-0.6); Monocytes Percent Auto 6.5 % (2.6-8.5); Neutrophils Absolute Auto 4.6 K/mm3 (1.3-6.7); Neutrophils Percent Auto 59.7 % (45.5-73.1); Platelet Count Result 248 k/mm3 (150-375); Red Blood Count 4.73 M/mm3 (4.2-5.4); Red Cell Distribution Width 13.5 % (11.5-14.5); White Blood Count 7.7 K/mm3 (4.5-10.0)
[2024-07-02 05:44] LABS: Alanine Aminotransferase 16 U/L (6-35); Albumin Level 4.3 g/dL (3.5-5.1); Alkaline Phosphatase 58 U/L (38-126); Anion Gap 11 mmol/L (4-12); Aspartate Amino Transferase 23 U/L (14-36); Bilirubin,Total 0.4 mg/dL (0.2-1.3); Blood Urea Nitrogen 21 mg/dL (7-17); Calcium 9.8 mg/dL (8.4-10.2); Carbon Dioxide 27 mmol/L (22-30); Chloride 101 mmol/L (98-107); Estimated CRCL calculation 48 ml/min; Estimated Glomerular Filt Rate 54; Glucose 104 mg/dL (65-110); Potassium 3.3 mmol/L (3.4-5.0); Prothrombin Time 13.3 Seconds (11.1-14.7); Sodium 139 mmol/L (137-145)
[2024-07-02 05:45] LABS: Partial Thromboplastin Time 37.2 Seconds (22.3-36.8)
--- NOTE | 2024-07-02 05:49 | PC.NURSE ---
Patient taken to CT via stretcher at this time.
[2024-07-02 05:54] LABS: NT Pro B Type Natriuretic Pept 45 pg/mL (19.9-100); Troponin I < 0.012 ng/mL (0.000-0.034)
[2024-07-02 05:57] LABS: Lactic Acid Reflex 1.4 mmol/L (0.7-2.0)
[2024-07-02 06:20] LABS: Influenza A QL RT-PCR Negative (Negative); Influenza B QL RT-PCR Negative (Negative); RSV RNA, RT-PCR Negative (Negative); SARS-CoV-2 RNA PCR Negative (Negative)
--- NOTE | 2024-07-02 06:33 | PC.NURSE ---
Patient ambulated in hallway with pulse ox and monitor. Patient ambulated with a steady unassisted gait, HR ranged from 79-84bpm and O2 remained at 100%. Patient denied any weakness or sob during ambulation assessment.
[2024-07-02] MEDS: CEFDINIR 300 MG CAPSULE PO (06:39)
[2024-07-02] MEDS: DOXYCYCLINE HYCLATE 100 MG TABLET PO (06:40)
[2024-07-02] MEDS: POTASSIUM CHLORIDE 20 MEQ PACKET (FOR LIQUID) 40 MEQ PO (06:40)
== END 2024-07-02 07:01 | disposition home or self-care (01) ==
PROVIDERS: Emergency Provider Emergency Medicine; PCP Nurse Practitioner Family
DX: J18.9 Pneumonia, unspecified organism (principal); R06.02 Shortness of breath; M35.3 Polymyalgia rheumatica; I10 Essential (primary) hypertension; E78.5 Hyperlipidemia, unspecified; E03.9 Hypothyroidism, unspecified; E55.9 Vitamin D deficiency, unspecified; K21.9 Gastro-esophageal reflux disease without esophagitis; Z86.73 Personal history of transient ischemic attack (TIA), and cerebral infarction without residual deficits; Z79.82 Long term (current) use of aspirin; Z20.822 Contact with and (suspected) exposure to COVID-19
CPT/HCPCS: 36415; 71045; 71275; 74177; 80053; 83605; 83880; 84484; 85025; 85610; 85730; 87637; 93005; 99284; A9270; Q9967

== ENCOUNTER 2024-12-08 09:36 | Emergency (ER) | payer MEDICARE, MEDICAID, SELFPAY ==
[2024-12-08 09:48] VITALS: BP 156/67; PULSE 54; RESP 16; TEMP 36.6; O2SAT 100
--- NOTE | 2024-12-08 10:35 | ED.DIZZY ---
HPI - Dizziness General Chief Complaint: Dizziness Stated Complaint: dizzines Time Seen by Provider: 12/08/24 10:35 Source: patient and family Mode of arrival: ambulatory Limitations: no limitations History of Present Illness HPI Narrative: 79 YEARS OLD WHITE FEMALE CAME FROM HOME WITH HER DAUGHTER BECAUSE OF INTERMITTENT DIZZINESS, STARTED 2-3 DAYS AGO, WORSE WITH ANY ACTIVITIES, MAINLY TURNING HEAD IN EITHER DIRECTION, DENIES ANY NAUSEA OR VOMITING, CHEST PAIN OR SHORTNESS OF BREATH OR HEADACHE OR FOCAL NEURO DEFICIT. PATIENT IS TELLING ME THAT SHE HAVE LONG HISTORY OF LIGHT DIZZINESS BUT NOT LIKE THIS 1. HISTORY OF HYPERTENSION HYPERLIPIDEMIA DEEP VEIN THROMBOSIS CURRENTLY ON ELIQUIS, HYPOTHYROIDISM, POLYMYALGIA RHEUMATICA ON PREDNISONE, TIAS. PATIENT DOES NOT SMOKE OR DRINK OR USE DRUGS Related Data Home Medications ?Medication ?Instructions ?Recorded ?Confirmed ?Last Taken ?Type aspirin 81 mg capsule 81 mg PO DAILY 11/15/22 09/28/24 1 Day Ago History ~11/14/22 cholecalciferol (vitamin D3) 25 25 mcg PO DAILY 11/15/22 09/28/24 1 Day Ago History mcg (1,000 unit) capsule (Vitamin ~11/14/22 D3) famotidine 20 mg tablet 20 mg PO DAILY 03/23/24 09/28/24 Unknown History multivitamin 1 tablet PO DAILY 03/23/24 09/28/24 Unknown History potassium citrate 5 mEq (540 mg) 10 meq PO DAILY 03/23/24 09/28/24 Unknown History tablet,extended release Allergies Allergy/AdvReac Type Severity Reaction Status Date / Time guaifenesin (From Mucinex) Allergy Itching Verified 09/28/24 14:39 ibuprofen Allergy Rash Verified 09/28/24 14:39 latex Allergy Swelling Verified 09/28/24 14:39 of Lip/Tongue/Throat lisinopril Allergy Swelling Verified 09/28/24 14:39 of Lip/Tongue/Throat albuterol AdvReac Palpitation Verified 09/28/24 14:39 s naproxen AdvReac Palpitation Verified 09/28/24 14:39 s Review of Systems Review of Systems: All systems reviewed & are unremarkable except as noted in HPI and below PMFSH Past Medical History Medical History Edema of left lower leg Polymyalgia rheumatica Vitamin D deficiency Hyperlipidemia GERD (gastroesophageal reflux disease) History of kidney stones Seasonal allergies Arthritis Hypothyroidism Colon polyp Hypertension TIA (transient ischemic attack) Surgical History Surgical History Hx of cholecystectomy History of appendectomy Total knee replacement status Bilat History of bladder surgery H/O: hysterectomy H/O colonoscopy with polypectomy Family History Family History Mother Cerebrovascular accident Sibling Ovarian cancer Sister Father Malignant neoplasm of prostate Sibling Lung cancer Malignant neoplasm of prostate Thyroid disease Sibling Parkinsons Social History Social History Social History: The patient is and has 5 kids. She is a lifelong nonsmoker. She is retired. Her is her durable power transactional attorney for healthcare. Code status full code Smoking status: Never smoker Alcohol intake: never Substance use: never Lack of Transportation: No Lack of Food: Never True Current Housing: I Have Housing Concerned About Future Housing: No Difficulty Paying Gas/Electric Bills: No Difficulty Paying for Meds: No Currently Unemployed: No Education: Grade School Difficulty w/ Childcare or Family Care: No Spiritual care concerns: No Exam Narrative: GENERAL APPEARANCE: WELL-DEVELOPED, WELL-NOURISHED SKIN: NORMAL COLOR HEAD: NORMOCEPHALIC, NONTRAUMATIC EYES: CLEAR CONJUNCTIVA ENT: OROPHARYNX NORMAL, EARS NORMAL, NOSE NORMAL NECK: SUPPLE, NONTENDER CHEST AND RESPIRATORY: AIRWAY PATENT, NO RESPIRATORY DISTRESS, NO ACCESSORY MUSCLE USE HEART: REGULAR RATE/RHYTHM ABDOMEN: SOFT, NONTENDER, NO ORGANOMEGALY, QUIET BOWEL SOUNDS VASCULAR: NORMAL PERIPHERAL PULSES, NORMAL CAPILLARY REFILL. MUSCULOSKELETAL: NORMAL RANGE OF MOTION, NONTENDER BACK NEUROLOGIC: ALERT AND ORIENTED ?3, HARNESS REPAIRER IS NORMAL TESTED, NO GROSS MOTOR DEFICIT Course Vital Signs Vital signs: Vital Signs Temperature 36.6 C 12/08/24 09:48 Pulse Rate 54 L 12/08/24 09:48 Respiratory Rate 16 12/08/24 09:48 Blood Pressure 156/67 H 12/08/24 09:48 Pulse Oximetry 100 12/08/24 09:48 Temperature 36.6 C 12/08/24 09:48 Pulse Rate 71 12/08/24 12:21 Respiratory Rate 18 12/08/24 12:21 Blood Pressure 168/82 H 12/08/24 12:00 Pulse Oximetry 98 12/08/24 12:21 MDM - Dizziness MDM Narrative Medical decision making narrative: PATIENT CAME TO THE ED WITH INTERMITTENT DIZZINESS PATIENT WAS ABLE TO STAND UP WITHOUT COBOL DEVELOPER AND WALK AROUND THE ED ANY STEADY GAIT WITHOUT COBOL DEVELOPER AND WAS ABLE TO TURN AROUND AND GO BACK TO BED WITHOUT ANY COMPLAINTS VITAL SIGNS SHOWING HEART RATE OF 54 OTHERWISE WITHIN NORMAL LIMIT PHYSICAL EXAMINATION REMARKABLE FOR UNSTEADY GAIT, OTHERWISE INSIGNIFICANT DIFFERENTIAL DIAGNOSIS INCLUDE VERTIGO, POSTERIOR CIRCULATION CVA, DISEQUILIBRIUM, INTRACRANIAL PATHOLOGY, BLOOD WORKUP TODAY INCLUDES CBC, CMP, TROPONIN SHOWED WBC OF 10.3, OTHERWISE INSECT CHEST X-RAY SHOWED NO ACUTE ABNORMALITIES, CT HEAD SHOWED NO ACUTE ABNORMALITIES Differential Diagnosis Differential diagnosis: Likely other ( ABOVE) Medical Records Attestation: I reviewed the patient's medical records. Lab Data Attestation: I reviewed the patient's lab results. 12/08/24 11:50 12/08/24 11:50 Labs: Lab Results 12/08/24 12/08/24 Range/Units 11:50 12:19 WBC 10.3 H (4.5-10.0) K/mm3 RBC 4.81 (4.2-5.4) M/mm3 Hgb 13.1 (12.0-15.0) g/dL Hct 40.1 (37.0-47.0) % MCV 83.4 (80-100) fl MCH 27.2 (26-34) pg MCHC 32.7 (32-36) g/dl RDW 13.5 (11.5-14.5) % Plt Count 262 (150-375) k/mm3 MPV 9.2 (7.4-10.4) fl Immature Gran % (Auto) 0.4 (0-0.5) % Neut % (Auto) 82.7 H (45.5-73.1) % Lymph % (Auto) 11.3 L (18.3-44.2) % [place] % (Auto) 4.5 (2.6-8.5) % Eos % (Auto) 0.5 (0-4.4) % Baso % (Auto) 0.6 (0.2-1.2) % Lymph # (Auto) 1.16 (0.9-3.2) K/mm3 [place] # (Auto) 0.5 (0.1-0.6) K/mm3 Eos # (Auto) 0.1 (0-0.3) K/mm3 Baso # (Auto) 0.1 (0.0-0.1) K/mm3 Abs Immat Gran (auto) 0.04 H (0.00-0.031) K/mm3 Absolute Neuts (auto) 8.5 H (1.3-6.7) K/mm3 Absolute Nucleated RBC 0.000 (0.0-0.012) K/mm3 Nucleated RBC % 0.0 (0.0-0.2) % PT 15.6 H (11.1-14.7) Seconds INR 1.2 APTT 37.9 H (22.3-36.8) Seconds Sodium 140 (137-145) mmol/L Potassium 3.5 (3.4-5.0) mmol/L Chloride 100 (98-107) mmol/L Carbon Dioxide 28 (22-30) mmol/L Anion Gap 12 (4-12) mmol/L BUN 22 H (7-17) mg/dL Creatinine 1.05 H (0.7-1.0) mg/dL Estim Creat Clear Calc 45 ml/min Estimated GFR 51 L (59 - ) Glucose 104 (65-110) mg/dL Calcium 10.3 H (8.4-10.2) mg/dL Total Bilirubin 0.6 (0.2-1.3) mg/dL AST 22 (14-36) U/L ALT 17 (6-35) U/L Alkaline Phosphatase 65 (38-126) U/L Troponin I < 0.012 (0.000-0.034) ng/mL Total Protein 8.0 (6.3-8.2) g/dL Albumin 4.3 (3.5-5.1) g/dL Urine Color Yellow (Yellow) Urine Appearance Clear (Clear) Urine pH 6.5 (5.0-9.0) Ur Specific [place] 1.010 (1.001-1.035) Urine Protein Negative (Negative) mg/dL Urine Glucose (UA) Negative (Negative) mg/dL Urine Ketones Negative (Negative) mg/dL Ur Blood (Man) Trace (Negative) Urine Nitrate Negative (Negative) Urine Bilirubin Negative (Negative) Urine Urobilinogen 0.2 (<2.0) mg/dL Leukocyte Esterase Rfl Negative (Negative) BRIAN/UL Urine RBC 3-5 H (0-2) /hpf Urine WBC 0-5 (0-3) /hpf Ur Squamous Epith Cells None seen (Few) /hpf Urine Bacteria None seen /hpf Urine Casts 0-2 Influenza A (RT-PCR) Negative (Negative) Influenza B (RT-PCR) Negative (Negative) SARS-CoV-2 RNA (RT-PCR) Negative (Negative) Imaging Data Radiologist's impression: Impressions Head CT 12/08/24 10:47 IMPRESSION: 1. Normal aging brain. No acute intracranial process. Chest X-Ray 12/08/24 11:15 IMPRESSION: 1. No acute cardiopulmonary disease. ECG Data EKG #1: Attestation: I personally reviewed and interpreted this ECG as follows: ECG completion date: 12/08/24 ECG completion time: 12:27 Interpretation: SINUS BRADYCARDIA AT 51 BEATS PER MINUTE WITH FIRST-DEGREE HEART BLOCK, LEFT AXIS DEVIATION, COMPARED TO EKG ON 2023 FIRST-DEGREE AV BLOCK NOW PRESENT SINUS RHYTHM NO LONGER PRESENT Discharge Plan Discharge Clinical Impression: Vertigo Patient Disposition: Home, Self-Care Condition: Stable Instructions: Vertigo (ED) Additional Instructions: RETURN IF SYMPTOMS ARE WORSENING , CALL YOUR FAMILY PHYSICIAN FOR APPOINTMENT, TAKE TYLENOL NEEDED FOR ACHES AND PAIN, CONTINUE HOME MEDICATIONS. AVOID ANY ACTIVITY WHEN HE HAVE ANY DIZZY SPELL Patient Language: German Prescriptions: New meclizine [Antivert] 25 mg tablet,chewable 25 mg PO TID Qty: 20 0RF No Action famotidine 20 mg tablet 20 mg PO DAILY potassium citrate 5 mEq (540 mg) tablet extended release 10 meq PO DAILY multivitamin Tablet 1 tablet PO DAILY cholecalciferol (vitamin D3) [Vitamin D3] 25 mcg (1,000 unit) Capsule 25 mcg PO DAILY aspirin 81 mg Capsule 81 mg PO DAILY amlodipine 5 mg tablet 5 mg PO DAILY Qty: 90 3RF hydrochlorothiazide 25 mg tablet 25 mg PO DAILY Qty: 90 3RF levothyroxine 125 mcg tablet 125 mcg PO DAILY Qty: 90 3RF losartan 100 mg tablet 100 mg PO DAILY Qty: 90 3RF simvastatin 20 mg tablet 20 mg PO DAILY Qty: 90 3RF prednisone 5 mg tablet 5 mg PO DIRECTED Qty: 90 3RF Eliquis DVT-PE Treat 30D Start 5 mg (74 tabs) tablets,dose pack See Rx Instructions PO PER PKG DIR Qty: 74 0RF Rx Instructions: PO PER PKG DIR Eliquis 5 mg tablet 5 mg PO BID Qty: 60 4RF Rx Instructions: start after Eliquis starter pack is complete Follow-up/Referrals: Shayna Zaidi NP [Primary Care Provider] - Quality Stroke Scale Stroke Scale 1: Stroke scale date:: 12/08/24 1a Level of consciousness: alert-0 1b Level of consciousness questions: answers both correctly-0 1c Level of consciousness commands: obeys both correctly-0 2 Best gaze: normal-0 3 Visual: no visual loss-0 4 Facial palsy: normal-0 5a Motor: left arm: no drift-0 5b Motor: right arm: no drift-0 6a Motor: left leg: no drift-0 6b Motor: right leg: no drift-0 7 Limb ataxia: absent-0 8 Sensory: normal-0 9 Best language: no aphasia-0 10 Dysarthria: normal-0 11 Extinction and inattention: no abnormality-0 Level:: 0
[2024-12-08 11:48] VITALS: BP 157/76; PULSE 54; RESP 17; O2SAT 98
[2024-12-08 11:59] LABS: Basophils Absolute Auto 0.1 K/mm3 (0.0-0.1); Basophils Percent Auto 0.6 % (0.2-1.2); Eosinophils Absolute Auto 0.1 K/mm3 (0-0.3); Eosinophils Percent Auto 0.5 % (0-4.4); Hematocrit 40.1 % (37.0-47.0); Hemoglobin 13.1 g/dL (12.0-15.0); Immature Granulocyte Absolute 0.04 K/mm3 (0.00-0.031); Immature Granulocyte Percent A 0.4 % (0-0.5); Lymphocytes Absolute Auto 1.16 K/mm3 (0.9-3.2); Lymphocytes Percent Auto 11.3 % (18.3-44.2); Mean Corpuscular HGB Conc 32.7 g/dl (32-36); Mean Corpuscular Hemoglobin 27.2 pg (26-34); Mean Corpuscular Volume 83.4 fl (80-100); Mean Platelet Volume 9.2 fl (7.4-10.4); Monocytes Absolute Auto 0.5 K/mm3 (0.1-0.6); Monocytes Percent Auto 4.5 % (2.6-8.5); Neutrophils Absolute Auto 8.5 K/mm3 (1.3-6.7); Neutrophils Percent Auto 82.7 % (45.5-73.1); Platelet Count Result 262 k/mm3 (150-375); Red Blood Count 4.81 M/mm3 (4.2-5.4); Red Cell Distribution Width 13.5 % (11.5-14.5); White Blood Count 10.3 K/mm3 (4.5-10.0)
[2024-12-08 12:00] VITALS: BP 168/82; PULSE 50; O2SAT 100
[2024-12-08 12:10] LABS: Alanine Aminotransferase 17 U/L (6-35); Albumin Level 4.3 g/dL (3.5-5.1); Alkaline Phosphatase 65 U/L (38-126); Anion Gap 12 mmol/L (4-12); Aspartate Amino Transferase 22 U/L (14-36); Bilirubin,Total 0.6 mg/dL (0.2-1.3); Blood Urea Nitrogen 22 mg/dL (7-17); Calcium 10.3 mg/dL (8.4-10.2); Carbon Dioxide 28 mmol/L (22-30); Chloride 100 mmol/L (98-107); Estimated CRCL calculation 45 ml/min; Estimated Glomerular Filt Rate 51; Glucose 104 mg/dL (65-110); Potassium 3.5 mmol/L (3.4-5.0); Sodium 140 mmol/L (137-145)
[2024-12-08 12:16] LABS: INR 1.2; Prothrombin Time 15.6 Seconds (11.1-14.7)
[2024-12-08 12:17] LABS: Partial Thromboplastin Time 37.9 Seconds (22.3-36.8)
[2024-12-08 12:21] VITALS: PULSE 71; RESP 18; O2SAT 98
[2024-12-08 12:24] LABS: Troponin I < 0.012 ng/mL (0.000-0.034)
[2024-12-08 12:34] LABS: Add Urine Microscopic? YES; Appearance Urine Clear (Clear); Bacteria Urine None Seen /hpf; Bilirubin Urine Negative (Negative); Blood Urine Trace (Negative); Color Urine Yellow (Yellow); Glucose Urine UA Negative (Negative); Ketones Urine Negative (Negative); Leukocyte Esterase Ur Negative LEU/UL (Negative); Nitrate Urine Negative (Negative); Non Pathogenic Casts 0-2; Protein Urine Negative (Negative); Squamous Epithelial Cell Urine None Seen /hpf (Few); Urobilinogen Urine 0.2 mg/dL (<2.0); WBC Urine 0-5 /hpf (0-3); pH Urine 6.5 (5.0-9.0)
[2024-12-08 12:35] LABS: Influenza A QL RT-PCR Negative (Negative); Influenza B QL RT-PCR Negative (Negative); SARS-CoV-2 RNA PCR Negative (Negative)
== END 2024-12-08 12:55 | disposition home or self-care (01) ==
PROVIDERS: Emergency Medicine; Emergency Provider Emergency Medicine; PCP Nurse Practitioner Family
DX: R42 Dizziness and giddiness (principal); Z20.822 Contact with and (suspected) exposure to COVID-19; I10 Essential (primary) hypertension; E78.5 Hyperlipidemia, unspecified; E03.9 Hypothyroidism, unspecified; E55.9 Vitamin D deficiency, unspecified; K21.9 Gastro-esophageal reflux disease without esophagitis; M35.3 Polymyalgia rheumatica; M19.90 Unspecified osteoarthritis, unspecified site; Z96.653 Presence of artificial knee joint, bilateral; Z86.73 Personal history of transient ischemic attack (TIA), and cerebral infarction without residual deficits; Z86.718 Personal history of other venous thrombosis and embolism; Z87.442 Personal history of urinary calculi; Z86.0100 Personal history of colon polyps, unspecified; Z90.49 Acquired absence of other specified parts of digestive tract; Z90.710 Acquired absence of both cervix and uterus; R00.1 Bradycardia, unspecified; I45.9 Conduction disorder, unspecified; I44.0 Atrioventricular block, first degree
CPT/HCPCS: 36415; 70450; 71045; 80053; 81001; 84484; 85025; 85610; 85730; 87636; 93005; 99284

== ENCOUNTER 2025-03-06 09:36 | Outpatient (CLI) | payer MEDICARE, MEDICAID, SELFPAY ==
--- NOTE | ~2025-03-06 | US_ITS ---
EXAMINATION: US venous doppler LE DATE: 03/06/2025 10:36 INDICATION: Follow up LLE DVT, Dx'd in October of 2024 TECHNIQUE: Grayscale ultrasound images without and with compression and Doppler ultrasound images of the left lower extremity veins were obtained. COMPARISON: 10/18/2024 FINDINGS: The visualized portions of left common femoral vein, femoral vein, popliteal vein, peroneal veins, po sterior tibial veins, and greater saphenous vein outflow are patent and easily compressible. Noncompr essibility and absence of flow within the proximal femoral vein, unchanged from prior study. 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 Reviewed, dictated and finalized at location A.
== END 2025-03-06 09:37 | disposition home or self-care (01) ==
PROVIDERS: PCP Nurse Practitioner Family; Visit Provider Nurse Practitioner Family
DX: I82.412 Acute embolism and thrombosis of left femoral vein (principal)
CPT/HCPCS: 93971